=== PATIENT | male | born 1950 | race African-American/Black ===

== ENCOUNTER 2023-11-29 13:46 | Emergency (ER) | payer MEDICARE ==
[~2023-11-29] VITALS: Ht 180.3 cm; Wt 62.3 kg
[2023-11-29 13:55] VITALS: BP 132/63; PULSE 83; RESP 18; TEMP 98.4; O2SAT 96
[2023-11-29] MEDS: KETOROLAC 60 MG/2 ML VIAL IM ONE (14:15)
[2023-11-29] MEDS ORDERED: IBUP-2213 PO (15:05)
[2023-11-29 15:18] VITALS: BP 132/63; PULSE 83; RESP 18; TEMP 98.4; O2SAT 96
== END 2023-11-29 15:16 | disposition home or self-care (01) ==
LOC: MED 13:46
DX: R22.42 Localized swelling, mass and lump, left lower limb (principal); M79.662 Pain in left lower leg; R03.0 Elevated blood-pressure reading, without diagnosis of hypertension; F17.210 Nicotine dependence, cigarettes, uncomplicated; Z98.890 Other specified postprocedural states; Z79.1 Long term (current) use of non-steroidal anti-inflammatories (NSAID); Z88.0 Allergy status to penicillin
CPT/HCPCS: 93971; 96372; 99285; J1885; Q0092